=== PATIENT | female | born 1980 | race Caucasian/White ===

== ENCOUNTER 2022-08-23 10:57 | Emergency (ER) | payer OTHER ==
[2022-08-23 11:03] VITALS: RESP 18; BMI 38.4
[2022-08-23 13:22] LABS: BASO % 0.6 % (0-2.0); EOS % 0.2 % (0-4.5); HEMATOCRIT 38.8 % (32.4-45.2); HEMOGLOBIN 13.1 GM/dL (10.7-15.3); LYMPH % 19.5 % (8-40); MCH 29.1 pg (25.7-33.7); MCHC 33.7 g/dl (32.0-36.0); MEAN CELL VOLUME 86.5 fl (80-96); MEAN PLT VOLUME 9.3 fl (7.5-11.1); MONO % 9.8 % (3.8-10.2); NEUT % 69.9 % (42.8-82.8); PLATELET COUNT 242 10^3/uL (134-434); RBC 4.49 M/mm3 (3.60-5.2); WHITE BLOOD COUNT 7.8 K/mm3 (4.0-10.0)
[2022-08-23 13:25] LABS: EPI CELLS 31 /uL (0-25.1); HYALINE CASTS 1 /uL (0-3.1); PH,URINE 5.5 (5.0-8.0); URINE APPEARANCE CLOUDY; URINE BACTERIA 1040 /uL (0-1359); URINE BILIRUBIN NEGATIVE (NEGATIVE); URINE COLOR YELLOW; URINE GLUCOSE (UA) NEGATIVE (NEGATIVE); URINE KETONE NEGATIVE (NEGATIVE); URINE LEUK ESTERASE 2+ (NEGATIVE); URINE NITRITE NEGATIVE (NEGATIVE); URINE PROTEIN TRACE (NEGATIVE); URINE RBC 62 /uL (0-23.9); URINE UROBILINOGEN 0.2 mg/dL (0.2-1.0); URINE WBC 293 /uL (0-25.8)
[2022-08-23 13:29] LABS: INR 1.06 (0.83-1.09); PROTHROMBIN TIME (PATIENT) 12.2 SEC (9.7-13.0)
[2022-08-23 13:42] LABS: ACTIVATED PTT 32.2 SECONDS (25.2-36.5)
[2022-08-23 13:46] LABS: BLOOD UREA NITROGEN 13.8 mg/dL (7-18); CALCIUM 9.1 mg/dL (8.5-10.1)
[2022-08-23 13:47] LABS: ALBUMIN 3.7 g/dl (3.4-5.0)
[2022-08-23 13:49] LABS: CREATININE 0.8 mg/dL (0.55-1.3)
[2022-08-23 13:51] LABS: BILIRUBIN,TOTAL 0.3 mg/dL (0.2-1); TOT PROT 7.8 g/dl (6.4-8.2)
[2022-08-23 14:10] VITALS: BP 124/71; PULSE 66; TEMP 98
== END 2022-08-23 17:59 | disposition home or self-care (01) ==
LOC: JER 10:57
DX: O20.0 Threatened abortion (principal); Z3A.01 Less than 8 weeks gestation of pregnancy
CPT/HCPCS: 36415; 76817-TC; 80053; 81003; 84702; 85025; 85610; 85730; 86850; 86900; 86901; 87086; 99284-25